=== PATIENT | male | born 1985 | race Caucasian/White ===

== ENCOUNTER 2021-07-07 16:09 | Emergency (ER) | payer OTHER ==
[2021-07-07 16:35] VITALS: BP 115/73; PULSE 99; TEMP 98.6; BMI 32.4
== END 2021-07-07 18:11 | disposition home or self-care (01) ==
LOC: JER 16:09
DX: S90.02XA Contusion of left ankle, initial encounter (principal); V19.40XA Pedal cycle driver injured in collision with unspecified motor vehicles in traffic accident, initial encounter
CPT/HCPCS: 73610-TC-LT-FY; 73630-TC-LT; 99283-25